=== PATIENT | male | born 1980 | race Caucasian/White ===

== ENCOUNTER 2018-08-06 07:42 | Day surgery (SDC) | payer MEDICAID, SELFPAY ==
[2018-08-06 08:58] VITALS: BP 109/81; PULSE 70; RESP 16; TEMP 37.2; O2SAT 99; BMI 21.3
[2018-08-06] MEDS: Bacitracin 500 UNITS/GM PACKET (11:50)
--- NOTE | 2018-08-06 12:20 | PCM.OPRPT ---
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 This is caused him to be unsuccessful with the wearing of a traditional hearing aid but he was able to use a bone oscillator very successfully and a bone anchored hearing device was offered for correction of his hearing loss and he was eager to proceed and demonstrated good hearing improvement with a bone conductive rehabilitation strategy. The risks, alternatives, potential benefits, and complications were discussed at length and any questions answered to the patient and/or caregiver's satisfaction. Witnessed informed consent was obtained in the office, and the patient and/or caregiver was agreeable to proceed. Procedure went as follows: The patient was identified in the preoperative holding after site marking the appropriate ear in accordance with the patient's history, office chart, and physical exam. The patient was then brought to the operating room and placed under general anesthesia and intubated. When appropriate anesthesia is obtained, the scalp was prepped and draped in usual sterile fashion. The abutment site was then marked 5 cm posterior to the external auditory meatus and injected with 1 mL of 1% lidocaine with 100,000 epinephrine. Using a 5 mm punch, the skin and subcutaneous tissues were incised and resected. The periosteum overlying the operative site was then removed sharply with an iris scissor and a periosteal elevator. The claims account specialist drill hole was then created and palpated to ensure bone at the maximal depth of the hole and then finalized to 4 mm in size to allow for placement of the titanium abutment. The bony fragments were then suctioned and irrigated clear and the 4 x 12 mm abutment was then placed in accordance of the manufacture's directions. Xeroform gauze was then placed at the skin edge followed by the healing cap. The patient was then to return to anesthesia, was revived and extubated without complication having tolerated the procedure well. Type of Anesthesia:: General Anesthesiologist: Bebeto Crabtree Special Medications: none Specimen's removed: none Drains: none Estimated Blood Loss (mL): 0 mL Fluids Replaced: 1100 mL - Complications none - Admit VTE Documentation VTE Present on Admission: No VTE Mechan Device Prophylaxis: SCD's VTE Pharm Prophylaxis ordered?: No
--- NOTE | 2018-08-06 12:24 | OP.PCM_ITS ---
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 This is caused him to be unsuccessful with the wearing of a traditional hearing aid but he was able to use a bone oscillator very successfully and a bone anchored hearing device was offered for correction of his hearing loss and he was eager to proceed and demonstrated good hearing improvement with a bone conductive rehabilitation strategy. The risks, alternatives, potential benefits, and complications were discussed at length and any questions answered to the patient and/or caregiver's satisfaction. [place] d informed consent was obtained in the office, and the patient and/or caregiver was agreeable to proceed. Procedure went as follows: The patient was identified in the preoperative holding after site marking the appropriate ear in accordance with the patient's history, office chart, and physical exam. The patient was then brought to the operating room and placed under general anesthesia and intubated. When appropriate anesthesia is obtained, the scalp was prepped and draped in usual sterile fashion. The abutment site was then marked 5 cm posterior to the external auditory meatus and injected with 1 mL of 1% lidocaine with 100,000 epinephrine. Using a 5 mm punch, the skin and subcutaneous tissues were incised and resected. The periosteum overlying the operative site was then removed sh arply with an iris scissor and a periosteal elevator. The fighter pilot drill hole was then created and palpated to ensure bone at the maximal depth of the hole and then finalized to 4 mm in size to allow for placement of the titanium abutment. The bony fragments were then suctioned and irrigated clear and the 4 x 12 mm abutment was then placed in accordance of the manufacture's directions. Xeroform gauze was then placed at the skin edge followed by the healing cap. The patient was then to return to anesthesia, was revived and extubated without complication having tolerated the procedure well. Type of Anesthesia:: General Anesthesiologist: Bebeto Crabtree Special Medications: none Specimen's removed: none Drains: none Estimated Blood Loss (mL): 0 mL Fluids Replaced: 1100 mL - Complications none - Admit VTE Documentation VTE Present on Admission: No VTE Mechan Device Prophylaxis: SCD's VTE Pharm Prophylaxis ordered?: No
[2018-08-06 12:31] VITALS: BP 109/81; BP 134/99; PULSE 96; RESP 16; TEMP 36.7; O2SAT 98
--- NOTE | 2018-08-06 12:31 | DCINST_ITS ---
- Discharge Diagnoses Current Active Problems: Current Active and Chronic Problems Mixed conductive and sensorineural hearing loss of both ears (Chronic) Acquired stenosis of both external ear canals (Chronic) You will use the following diet at home:: Regular Discharge Activity: No Restrictions Call your doctor if your incision/area has: Continuous Slow Oozing, Foul Smelling Discharge, Swelling at the incision site Call your doctor if you observe: Fever of 101 or Higher, Uncontrolled pain Allergies/Adverse Reactions: Allergies No Known Allergies Allergy (Verified 08/06/18 08:45) Medications to take at Discharge NK 08/06/18 Primary Care Physician: Care Physician,No Primary [Primary Care Provider] - Test Results: Test results from this visit will be discussed in further detail at your follow- up appointment, if applicable. Please Follow Up With: Ravi Sylvester MD When: 5 days
[2018-08-06 12:45] VITALS: BP 109/81; BP 130/87; PULSE 89; RESP 16; O2SAT 99
[2018-08-06 13:00] VITALS: BP 109/81; BP 129/90; PULSE 75; RESP 16; O2SAT 96
[2018-08-06 13:15] VITALS: BP 109/81; BP 132/86; PULSE 71; RESP 16; TEMP 36.8; O2SAT 97
[2018-08-06 13:45] VITALS: BP 109/81
--- OUTSIDE RECORDS SUMMARY | 2018-10-01 01:18 | XMS RPT_ITS ---
:1980 Author Organization [facility] Care Team Providers Name Role Phone KALLI MOSELEY Attending Unavailable SELF, SELF Referring Unavailable KENDALL PEREZ Attending Unavailable KALLI MOSELEY Referring Unavailable COLLEEN MACIEL Attending Unavailable Ravi Sylvester Attending Unavailable Ravi Sylvester Referring Unavailable Primay Care Physicia, No Primary Care Unavailable PROBLEMS PROBLEMS DATE TYPE CONDITION / ATTENDING STATUS SOURCE CODE 04/11/2018 Admitting Contusion of COLLEEN MACIEL [employer] Diagnosis right knee, [facility] [place] initial Rep[place] encounter / S80.01XA(ICD-10 ) 11/03/2017 Admitting Otalgia, NA Active [employer] Diagnosis bilateral / [facility] [place] H92.03(ICD-10) Repository 11/02/2017 Admitting Hearing Loss / PRADIP, [employer] Diagnosis 460() [place] [facility] [place] Rep[place] PROCEDURES PROCEDURES No Procedure Records FoundRESULTS RESULTS DISCHARGE INSTRUCTION Observed: 08/06/2018 Status: F Source: JD 12:31 PM [facility] REPOSITORY [facility] Medical Records Department [address] [place] [address] Instructions for Home/Discharge Instructions 08/06/18 1230 MR#: [id number] Acct: [id number] Name: TAYO WASHINGTON Rep #: [id number] : 1980 37 From: Ravi Sylvester MD PCP: Care Physician, No Primary Status: REG SDC - Discharge Diagnoses Current Active Problems: Current Active and Chronic Problems Mixed conductive and sensorineural hearing loss of both ears (Chronic) Acquired stenosis of both external ear canals (Chronic) You will use the following diet at home:: Regular Discharge Activity: No Restrictions Call your doctor if your incision/area has: Continuous Slow Oozing, Foul Smelling Discharge, Swelling at the incision site Call your doctor if you observe: Fever of 101 or Higher, Uncontrolled pain Allergies/Adverse Reactions: Allergies No Known Allergies Allergy (Verified 08/06/18 08:45) Medications to take at Discharge NK 08/06/18 Primary Care Physician: Care Physician,No Primary [Primary Care Provider] - Test Results: Test results from this visit will be discussed in further detail at your follow-up appointment, if applicable. Please Follow Up With: Ravi Sylvester MD When: 5 days 08/06/18 1231 <Electronically signed by Ravi Sylvester MD> Date Ravi Sylvester MD CC: No Primary Care Physician OPERATIVE REPORT Observed: 08/06/2018 Status: F Source: [place] 12:29 PM [facility] REPOSITORY [facility] Medical Records Department [address] [place] [address] Operative Report 08/06/18 1220 MR#: [id number] Acct: [id number] Name: TAYO WASHINGTON Rep #: [id number] : 1980 37 From: Ravi Sylvester MD PCP: Care Physician, No Primary Status: [facility] Y Location: [place] [address] Problem List (1) 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 This is caused him to be unsuccessful with the wearing of a traditional hearing aid but he was able to use a bone oscillator very successfully and a bone anchored hearing device was offered for correction of his hearing loss and he was eager to proceed and demonstrated good hearing improvement with a bone conductive rehabilitation strategy. The risks, alternatives, potential benefits, and complications were discussed at length and any questions answered to the patient and/or caregiver's satisfaction. Witnessed informed consent was obtained in the office, and the patient and/or caregiver was agreeable to proceed. Procedure went as follows: The patient was identified in the preoperative holding after site marking the appropriate ear in accordance with the patient's history, office chart, and physical exam. The patient was then brought to the operating room and placed under general anesthesia and intubated. When appropriate anesthesia is obtained, the scalp was prepped and draped in usual sterile fashion. The abutment site was then marked 5 cm posterior to the external auditory meatus and injected with 1 mL of 1% lidocaine with 100,000 epinephrine. Using a 5 mm punch, the skin and subcutaneous tissues were incised and resected. The periosteum overlying the operative site was then removed sharply with an iris scissor and a periosteal elevator. The ship's pilot drill hole was then created and palpated to ensure bone at the maximal depth of the hole and then finalized to 4 mm in size to allow for placement of the titanium abutment. The bony fragments were then suctioned and irrigated clear and the 4 x 12 mm abutment was then placed in accordance of the manufacture's directions. Xeroform gauze was then placed at the skin edge followed by the healing cap. The patient was then to return to anesthesia, was revived and extubated without complication having tolerated the procedure well. Type of Anesthesia:: General Anesthesiologist: Bebeto Crabtree Special Medications: none Specimen's removed: none Drains: none Estimated Blood Loss (mL): 0 mL Fluids Replaced: 1100 mL - Complications none - Admit VTE Documentation VTE Present on Admission: No VTE Mechan Device Prophylaxis: SCD's VTE Pharm Prophylaxis ordered?: No 08/06/18 1229 <Electronically signed by Ravi Sylvester MD> Date Ravi Sylvester MD CC: No Primary Care Physician; Ravi Sylvester MD Signed XR KNEE RIGHT 3 Observed: 04/11/2018 Status: F Source: [facility] VIEWS 10:36 PM [facility] [place] REPOSITORY CLINICAL HISTORY: Injury, pain. Patient dropped DVD player on the knee. RIGHT KNEE: 04/11/2018. COMPARISON: None. FINDINGS: 3 views are provided which demonstrate normally aligned joint spaces without fractures or dislocations. No abnormal soft tissue swelling, calcifications, or radiopaque foreign bodies. There is no joint effusion. IMPRESSION: No acute fractures or dislocations. CBC Collected: 11/03/2017 Status: F Source: [facility] 6:22 PM [facility] [place] REPOSIT[place] TYPE CODE TESTS RESULT OUT OF REFERENCE UNITS RANGE LAB WBC 3.6-11.0 /cmm WBC COUNT 6.4 LAB RBC 4.0-6.1 /cmm RBC COUNT 4.90 LAB HGB 14.0-18.0 G/DL HEMOGLOBIN 15.5 LAB HCT 42.0-52.0 % HEMATOCRIT 45.8 LAB MCV 80.0-100.0 FL MCV 93.4 LAB MCH 26.0-35.0 PG MCH 31.6 LAB MCHC 27.0-37.0 G/DL MCHC 33.8 LAB RDW 11.5-14.5 % RDW High 14.7 LAB PLTC 130.0-400.0 /cmm PLATELET COUNT 320 LAB MPV 7.4-11.0 FL Low MPV 6.8 Result Comment: Testing performed at [place] [id number] LAB DTYPE % DTYPE AUTO DIFF LAB NEUT 37.0-75. % 0 NEUTROPHIL 67.6 LAB LYMP 20.0-55. % 0 LYMPHOCYTE 23.5 LAB AOMONO 0.0-10.0 % MONOCYTE 7.2 LAB EOS 0.0-11.0 % EOSINOPHIL 1.0 LAB BASO 0.0-2.0 % BASOPHIL 0.7 LAB ANC 1.0-7.0 x10 ABSOLUTE NEUTROPHIL COUNT 4.3 LAB ALYM X10 ABSOLUTE LYMPHOCYTE 1.50 LAB AMONO X10 ABSOLUTE MONOCYTE 0.5 LAB AEO X10 ABSOLUTE EOS 0.10 LAB ABAS X10 ABSOLUTE BAS 0.0 Result Comment: Testing performed at [place], [place] [address] Performed By: #### ACBC #### Testing performed at [address] [address] ALLERGIES ALLERGIES DATE TYPE / CODE NAME / CODE REACTION SEVERITY SOURCE 08/06/2018 Drug No Known Unknown Jd [facility] Allergy/4160 Allergies/F00 Hospital 15057(SNOMED [id number](RXNOR Repository CT) M) ENCOUNTERS ENCOUNTERS ADMIT/DISCHARGE ACCOUNT NUMBER ADMITTING ENCOUNTER LOCATION SOURCE CLASS 08/06/2018/08/06/20 [id number] Ambulatory [place] [address] 18 [facility] ding:SDCRoom Repository : AC02 04/11/2018/04/11/20 [id number] [address] [place] [address] EDRoom: [place] [id number]: Repository E003 11/03/2017/11/03/19 [id number] [address] [place] [address] EDRoom[place] [facility] [place] [id number]: Repository E011 11/02/2017 [id number] [facility] 11/02/2017 [id number] Ambulatory [facility] ([place]) Repository PAYERS PAYERS ENCOUNTER GUARANTOR PAYER SUBSCRIBER SOURCE 08/06/2018 TAYO P Primary TAYO Nelly [address] Insurance:Aris PUGAB: [place], [place] Number: [id number] [address]Mbn: [phone] [id number] Repository [phone] () Date:[id number] [place] [id number]: 08/06/2018 Secondary NOT GIVENUNK Jd Insurance:SELF PAY [facility] Number: Effective Repository Date:2018-07-14
== END 2018-08-06 13:48 | disposition home or self-care (01) ==
LOC: SDC 07:44 → AC 07:45
PROVIDERS: Referring Provider Otolaryngology; Visit Provider Otolaryngology
PROC: (CPT 69710; principal; 2018-08-06 11:30)
DX: H90.6 Mixed conductive and sensorineural hearing loss, bilateral (principal); H61.303 Acquired stenosis of external ear canal, unspecified, bilateral; Q99.9 Chromosomal abnormality, unspecified; F17.200 Nicotine dependence, unspecified, uncomplicated; I10 Essential (primary) hypertension
CPT/HCPCS: 69714; J7120; J2405